=== PATIENT | female | born 1960 | race African-American/Black ===

== ENCOUNTER 2017-03-03 14:00 | Inpatient (IN) | payer OTHER ==
--- NOTE | 2017-03-03 14:34 | ER Document Report ---
ED Neuro Symptoms/Deficit - General Mode of Arrival: Medic Information source: Patient Notes: Patient is a 56 year old female with a history of stroke x2, hypertension, hyperlipidemia, and depression presents to the emergency department for stroke like symptoms onset 2 days ago. Patient states that she woke up Thursday morning and she noticed her speech was slurred and her tongue felt swollen. Patient states she did not immediately go to the doctor because she thought it was an infection due to a white coating on her tongue. Patient also complains of nausea. Patient denies any numbness, difficulty walking, trouble breathing, vomiting, headaches, weakness, blurry vision, runny nose, or sore throat. Patient states she last a stroke work up 4 years ago. TRAVEL OUTSIDE OF THE [place] IN LAST 30 DAYS: No - HPI Patient complains to provider of: Speech Impairment <FANTASMA YEE - Last Filed: 03/03/17 20:30> <KATJA GUERRERO - Last Filed: 03/03/17 23:22> - General Chief Complaint: S/S of Possible Stroke Stated Complaint: STROKE LIKE SYMPTOMS Time Seen by Provider: 03/03/17 14:17 - Related Data Allergies/Adverse Reactions: No Known Allergies Allergy (Unverified 03/03/17 19:03) Home Medications: Current Home Medications Bupropion HCl [Wellbutrin Sr] 150 mg PO Q12 03/03/17 [History] Clonidine HCl [Catapres 0.2 mg Tablet] 0.2 mg PO Q8 03/03/17 [History] Docusate Sodium [Colace] 200 mg PO QHS 03/03/17 [History] Ferrous Sulfate 324 mg PO DAILY 03/03/17 [History] Gabapentin [Neurontin] 400 mg PO Q12 03/03/17 [History] Hydralazine HCl [Apresoline 50 mg Tablet] 50 mg PO BID 03/03/17 [History] Isosorbide Mononitrate [Imdur 30 mg Tablet.er] 60 mg PO DAILY 03/03/17 [History] Metformin HCl [Glucophage] 1,000 mg PO BIDBS 03/03/17 [History] Metoprolol Tartrate [Lopressor 25 mg Tablet] 50 mg PO BID 03/03/17 [History] Pravastatin Sodium [Pravachol] 40 mg PO QHS 03/03/17 [History] Trazodone HCl [Desyrel 50 mg Tablet] 50 mg PO QHS 03/03/17 [History] Past Medical History - General Information source: Patient - Social History Smoking Status: Former Smoker Chew tobacco use (# tins/day): No Frequency of alcohol use: Occasional Drug Abuse: None Family History: Reviewed & Not Pertinent - Past Medical History Cardiac Medical History: Reports: Hx Hypertension <FANTASMA YEE - Last Filed: 03/03/17 20:30> Review of Systems - Review of Systems Constitutional: No symptoms reported EENT: No symptoms reported Cardiovascular: No symptoms reported Respiratory: No symptoms reported Gastrointestinal: See HPI, Nausea Genitourinary: No symptoms reported Female Genitourinary: No symptoms reported Skin: No symptoms reported Hematologic/Lymphatic: No symptoms reported Neurological/Psychological: See HPI, Speech impairment -: Yes All other systems reviewed and negative <FANTASMA YEE - Last Filed: 03/03/17 20:30> Physical Exam - Notes Notes: GENERAL: Alert, interacts well. No acute distress. HEAD: Normocephalic, atraumatic. EYES: Pupils equal, round, and reactive to light. Extraocular movements intact. ENT: Oral mucosa moist, tongue midline, oral thrush. NECK: Full range of motion. Supple. Trachea midline. LUNGS: Clear to auscultation bilaterally, no wheezes, rales, or rhonchi. No respiratory distress. HEART: 2/6 systolic murmur. No murmurs, gallops, or rubs. ABDOMEN: Soft, non-tender. Non-distended. Bowel sounds present in all 4 quadrants. EXTREMITIES: Moves all 4 extremities spontaneously. No edema, radial and dorsalis pedis pulses 2/4 bilaterally. No cyanosis. NEUROLOGICAL: Alert and oriented x3. Slurred speech. cranial nerves II through XII grossly intact. Biceps and patellar DTRs 2+ bilaterally. PSYCH: Normal affect, normal mood. SKIN: Warm, dry, normal turgor. No rashes or lesions noted. <FANTASMA YEE - Last Filed: 03/03/17 20:30> - Vital signs Vitals: Pulse Ox 97 03/03/17 14:20 <KATJA GUERRERO - Last Filed: 03/03/17 23:22> Course - Laboratory Result Diagrams: 03/03/17 14:40 03/03/17 14:40 <FANTASMA YEE - Last Filed: 03/03/17 20:30> - Re-evaluation Re-evalutation: 03/03/17 15:54 CBC shows mild anemia, no leukocytosis, 03/03/17 15:57 Coags unremarkable, CMP shows low sodium of 134.1 which is not significant, minimal renal failure with a BUN of 25 and creatinine 1.17, chest x-ray shows no acute process, CT scan of the head shows acute to subacute left cerebellar infarct consistent with a left vertebrobasilar infarct. No bleed. I discussed the patient with Dr. Kim the hospitalist who agrees to admit the patient to her service for acute ischemic CVA. Patient is not a candidate for TPA as this onset over 48 hours ago. - Vital Signs Vital signs: Temp Pulse Resp BP Pulse Ox 97 03/03/17 14:20 - Laboratory Result Diagrams: 03/03/17 14:40 03/03/17 14:40 Laboratory results interpreted by me: 03/03/17 03/03/17 14:40 14:40 Hgb 11.7 L Sodium 134.1 L BUN 25 H Est GFR ( Amer) 58 L Est GFR (Non-Af Amer) 48 L Glucose 206 H - EKG Interpretation by Me Additional EKG results interpreted by me: 03/03/17 15:58 EKG shows sinus rhythm at a rate of 65, normal axis, normal intervals, no ST segment elevations or depressions, nonspecific T-wave inversions in V5 and V6, also some lateral T-wave inversions in 1 and aVL per my interpretation. <KATJA GUERRERO - Last Filed: 03/03/17 23:22> ED [employer]/Exc Criteria - Date/Time patient last known well: Date/Time: 02/28/2017 - Date/Time patient arrived in ED: _: 03/03/2016 14:00 - Inclusion Criteria: 1: Patient presented to ED within 3 hours of acute ischemic stroke symptom onset ? -: No 2: Did baseline CT exclude intracranial hemorrhage and/or other risk factors? 3: Is the age of the patient 18 years of age or greater? -: Yes : If any of the above questions are answered "NO" then stop, patient is not a candidate for Alteplase, : If all of the above questions are answered "YES" then continue with Exclusion Criteria. - The patient is: -: Included and is eligible to receive Alteplase. *Initiate bed placement at higher level of care* --: No Reviewd risks & benefits of thrombolytic therapy: I have reviewed the risks and benefits of thrombolytic therapy with the patient and/or his/her family. -: Excluded and not eligible to receive Alteplase for the above exclusions. --: Yes -: Excluded and not eligible to receive Alteplase for other reasons (specify in comments): <JOSELITOFANTASMA IBANEZ - Last Filed: 03/03/17 20:30> ED NIH Stroke Scale - NIH Stroke Scale *: 1. NIH scale should be completed with appropriate accompanying assessment tools. *: 2. The NIH should reflect what the patient is capable of doing and should not be coached by the clinician. 1a. Level of Consciousness: 0=Alert;keenly responsive -: 1=Drowsy -: 2=Obtunded -: 3=Coma/unresponsive or reflex to noxious stimuli. 1a. Responses: 0 1b. Orientation Questions: a. What month is it? -: b. How old are you? -: 0=Answers both questions correctly. -: 1=Answers one question correctly or patient is intubated or has orotracheal trauma. -: 2=Answers neither question correctly. 1b. Responses: 0 1c. Response to commands: a. Open and close eyes? -: b. Customs Director and release hand? -: Credit is given despite weakness. Demonstration of task is permitted. Substitute command if hands cannot be used. -: 0=Performs both tasks correctly -: 1=Performs one task correctly -: 2=Performs neither task correctly 1c. Responses: 0 2. Gaze: Establish eye contact and instruct patient to "Follow my finger" -: 0=Normal -: 1=Partial gaze palsy. Gaze is abnormal in one or both eyes, but where forced deviation or total gaze paresis is not present. -: 2=Forced deviation or total gaze paresis. 2. Responses: 0 3. Visual Warren: Sees fingers in all four quadrants. -: 0=No visual loss. -: 1=Partial hemianopsia. -: 2=Complete hemianopsia. -: 3=Bilateral hemianopsia (including Cortical blindness) 3. Responses: 0 4. Facial Movement: Instruct patient to: -: a. Show me your teeth -: b. Raise your eyebrows -: c. Close your eyes -: d. Smile -: 0=Normal symmetrical movement -: 1=Minor paralysis (flattened nasolabial fold, asymmetry on smiling). -: 2=Partial paralysis (total or near total paralysis of lower face). -: 3=Complete paralysis of upper and lower face 4. Responses: 0 5. Motor functions (left arm): Alternate sides and extend each arm with palms down (90 degrees if sitting or 45 degrees for supine). -: 0=No drift;limb holds for full 10 seconds. -: 1=Drift; limb holds but drifts down before full 10 seconds, but does not hit bed. -: 2=Some effort against gravity; limb cannot get to or maintain position. -: 3=No effort against gravity; limb falls. -: 4=No movement. -: UN=Amputation, joint fusion, explain in comments. 5. Responses (left arm): 0 5. Motor Functions (right arm): Alternate sides and extend each arm with palms down (90 degrees if sitting or 45 degrees for supine). -: 0=No drift;limb holds for full 10 seconds. -: 1=Drift; limb holds but drifts down before full 10 seconds, but does not hit bed. -: 2=Some effort against gravity; limb cannot get to or maintain position. -: 3=No effort against gravity; limb falls. -: 4=No movement. -: UN=Amputation, joint fusion, explain in comments. 5. Responses (right arm): 0 6. Motor Functions (left leg): With patient lying supine, alternate sides and extend each leg (30 degrees always while supine). -: 0=No drift, leg holds position for full 5 seconds -: 1=Drift; leg falls before full 5 seconds but does not hit bed. -: 2=Some effort against gravity, leg falls to bed but some effort against gravity. -: 3=No effort against gravity, leg falls to bed immediately. -: 4=No movement. -: UN=Amputation, joint fusion; explain in comments. 6. Responses (left leg): 0 6. Motor Functions (right leg): With patient lying supine, alternate sides and extend each leg (30 degrees always while supine). -: 0=No drift, leg holds position for full 5 seconds -: 1=Drift; leg falls before full 5 seconds but does not hit bed. -: 2=Some effort against gravity, leg falls to bed but some effort against gravity. -: 3=No effort against gravity, leg falls to bed immediately. -: 4=No movement. -: UN=Amputation, joint fusion; explain in comments. 6. Responses (right leg): 0 7. Limb Ataxia: With eyes open instruct patient to: -: a. "Touch your finger to your nose". -: b. "Touch your heel to your armendariz" -: 0=Absent -: 1=Present in one limb. -: 2=Present in two limbs. -: UN=Amputation or joint fusion; explain in comments. 7. Responses: 0 8. Sensory: Test sensation using pinprick or noxious stimuli. Test as many body parts as possible. -: 0=Normal;no sensory loss -: 1=Mile to moderate sensory loss (patient feels pin prick but is less sharp on affected side). -: 2=Severe or total sensory loss. 8. Responses: 0 9. Best Language: Instruct patient to: -: a. "Describe what you see in this picture." -: b. "Name the items in this picture." -: c. "Read these sentences." -: 0=No aphasia, normal -: 1=Mild to moderate aphasia. -: 2=Severe aphasia -: 3=Mute, global aphasia, no usable speech or auditory comprehension. 9. Responses: 0 10. Articulation, Dysarthia: Instruct patient to: -: "Read these words" or "Repeat these words" -: 0=Normal -: 1=Mild to moderate; patient may slur some words but can be understood without difficulty. -: 2=Severe; patients speech so slurred as to be unintelligible in the absence of dysphasia. -: UN=Intubated or other physical barrier, explain in comments. 10. Responses: 1 11. Extinction or inattention: 0=No abnormality -: 1= Visual, tactile, auditory, spatial, or personal inattention or extinction to bilateral simulation in one or the sensory modalities. -: 2=Profound katherine-inattention or katherine-inattention to more than one modality; does not recognize own hand. 11. Responses: 0 Total Score: 1 <FANTASMA YEE - Last Filed: 03/03/17 20:30> Discharge <FANTASMA YEE - Last Filed: 03/03/17 20:30> - Discharge Admitting Provider: Hospitalist - [facility] Admitted: [facility] Scribe Attestation: 03/03/17 23:22 I personally performed the services described in the documentation, reviewed and edited the documentation which was dictated to the scribe in my presence, and it accurately records my words and actions. <KATJA GUERRERO - Last Filed: 03/03/17 23:22> - Discharge Clinical Impression: CVA (cerebral vascular accident) Qualifiers: CVA mechanism: unspecified Qualified Code(s): I63.9 - Cerebral infarction, unspecified Condition: Fair Disposition: ADMITTED INPATIENT Scribe Documentation - Scribe Written by Scribe:: Tapan Braun, 03/03/2016 15:12 acting as scribe for :: Yulisa <FANTASMA YEE - Last Filed: 03/03/17 20:30>
[2017-03-03 14:48] LABS: ABSOLUTE LYMPHOCYTES (AUTO) 1.4 10^3/uL (0.5-4.7); ABSOLUTE MONOCYTES (AUTO) 0.5 10^3/uL (0.1-1.4); ABSOLUTE NEUT (AUTO) 3.5 10^3/uL (1.7-8.2); BASOPHILS % (AUTO) 0.6 % (0-2); EOSINOPHILS % (AUTO) 0.5 % (0-6); HEMATOCRIT 36.5 % (36.0-47.0); HEMOGLOBIN 11.7 g/dL (12.0-15.5); LYMPHOCYTES % (AUTO) 25.1 % (13-45); MEAN CORPUSCULAR HEMOGLOBIN 27.5 pg (27.0-33.4); MEAN CORPUSCULAR HGB CONC 32.1 g/dL (32.0-36.0); MEAN CORPUSCULAR VOLUME 86 fl (80-97); MONOCYTES % (AUTO) 8.6 % (3-13); PLATELET COUNT 214 10^3/uL (150-450); RED BLOOD COUNT 4.26 10^6/uL (3.72-5.28); RED CELL DISTRIBUTION WIDTH 13.7 % (11.5-14.0); SEGMENTED NEUTROPHILS % (AUTO) 65.2 % (42-78); TOTAL CELLS COUNTED % (AUTO) 100 %; WHITE BLOOD COUNT 5.4 10^3/uL (4.0-10.5)
[2017-03-03 14:52] LABS: PROTHROMBIN TIME 12.8 SEC (11.4-15.4)
[2017-03-03 14:53] LABS: PARTIAL THROMBOPLASTIN TIME 29.9 SEC (23.5-35.8)
[2017-03-03 15:07] LABS: ALANINE AMINOTRANSFERASE 24 U/L (9-52); ALBUMIN 4.2 g/dL (3.5-5.0); ALKALINE PHOSPHATASE 66 U/L (38-126); ANION GAP 8 (5-19); ASPARTATE AMINO TRANSFERASE 14 U/L (14-36); BILIRUBIN,DIRECT 0.2 mg/dL (0.0-0.4); BILIRUBIN,TOTAL 0.4 mg/dL (0.2-1.3); BLOOD UREA NITROGEN 25 mg/dL (7-20); CALCIUM 9.8 mg/dL (8.4-10.2); CARBON DIOXIDE 27 mmol/L (22-30); CHLORIDE 99 mmol/L (98-107); CREATINE KINASE 57 U/L (30-135); GLUCOSE 206 mg/dL (75-110); POTASSIUM 4.8 mmol/L (3.6-5.0); SODIUM 134.1 mmol/L (137-145); TOTAL PROTEIN 6.8 g/dL (6.3-8.2)
[2017-03-03 15:19] LABS: CREATINE KINASE MB 0.28 ng/mL (<4.55)
[2017-03-03 15:20] LABS: TROPONIN I < 0.012 ng/mL
--- NOTE | 2017-03-03 15:37 | RADIOLOGY REPORT (SQ) ---
EXAM DESCRIPTION: CHEST SINGLE VIEW COMPLETED DATE/TIME: 03/03/2017 3:26 pm REASON FOR STUDY: slurred speech, stroke like symptoms COMPARISON: None. EXAM PARAMETERS: NUMBER OF VIEWS: One view. TECHNIQUE: Single frontal radiographic view of the chest acquired. RADIATION DOSE: NA LIMITATIONS: None. FINDINGS: LUNGS AND PLEURA: No opacities, masses or pneumothorax. No pleural effusion. MEDIASTINUM AND HILAR STRUCTURES: No masses. Contour normal. HEART AND VASCULAR STRUCTURES: Mild cardiomegaly. Normal vasculature. BONES: No acute findings. HARDWARE: None in the chest. OTHER: No other significant finding. IMPRESSION: NO ACUTE RADIOGRAPHIC FINDING IN THE CHEST. TECHNICAL DOCUMENTATION: JOB ID: [id number] [employer]- All Rights Reserved
--- NOTE | 2017-03-03 15:37 | RADIOLOGY REPORT (SQ) ---
EXAM DESCRIPTION: CT HEAD WITHOUT COMPLETED DATE/TIME: 03/03/2017 3:22 pm REASON FOR STUDY: slurred speech, stroke like symptoms COMPARISON: None. TECHNIQUE: Axial images acquired through the brain without intravenous contrast. Images reviewed wi th bone, brain and subdural windows. Images stored on PACS. All CT scanners at this facility use dose modulation, iterative reconstruction, and/or weight based d osing when appropriate to reduce radiation dose to as low as reasonably achievable (ALARA). [facility]: Dose Right [facility]: CareDose [facility]: Dose Right [facility]: Teradose 4D [facility]: Smart test company RADIATION DOSE: CT Rad equipment meets quality standard of care and radiation dose reduction techniq ues were employed. CTDIvol: 64.6 mGy. DLP: 1163 mGy-cm.mGy. LIMITATIONS: None. FINDINGS: VENTRICLES: Prominent. CEREBRUM: No masses. No hemorrhage. No midline shift. Areas of low density in the white matter mos t likely due to chronic micro-vascular ischemic change. No evidence for acute infarction. CEREBELLUM: No masses. No hemorrhage. Area of decreased attenuation in the left cerebellar hemisphe re. EXTRAAXIAL SPACES: Age-related involutional change. No fluid collections. No masses. ORBITS AND GLOBE: No intra- or extraconal masses. Normal contour of globe without masses. CALVARIUM: No fracture. PARANASAL SINUSES: No fluid or mucosal thickening. SOFT TISSUES: No mass or hematoma. OTHER: No other significant finding. IMPRESSION: CHRONIC CHANGES OF ATROPHY AND MICROVASCULAR ISCHEMIA. DECREASED ATTENUATION IN THE LEF T CEREBELLAR HEMISPHERE CONSISTENT WITH INFARCT, POSSIBLY RECENT. IF CLINICALLY INDICATED, FOLLOW-UP WITH MRI MAY BE CONSIDERED. EVIDENCE OF ACUTE STROKE: YES. LEFT VERTEBROBASILAR COMMENT: Pertinent findings on the imaging study reported as a CRITICAL RESULT to ASHLEY THOMPSON MD at 15:31 on 03/03/2017. Category of Critical Result: Acute infarct. TECHNICAL DOCUMENTATION: JOB ID: [id number] Quality ID # [id number]: Final reports with documentation of one or more dose reduction techniques (e.g., Au tomated exposure control, adjustment of the mA and/or kV according to patient size, use of iterative reconstruction technique) 2010 [employer]- All Rights Reserved
[2017-03-03] MEDS ORDERED: DOCUSATE SODIUM 100 MG CAPSULE PO PRN (16:54)
[2017-03-03] MEDS ORDERED: ACETAMINOPHEN 325 MG TABLET PO PRN (16:54)
[2017-03-03] MEDS ORDERED: NORMAL SALINE 1000 ML 1,000 ML IV PRN (16:54)
--- NOTE | 2017-03-03 18:14 | PDOC H&P ---
History of Present Illness Admission Date/PCP: 03/03/17 16:13 Patient complains of: Change in Street since Thursday History of Present Illness: GENESIS GOMEZ is a 56 year old female with a history of hypertension diabetes and strokes presenting with change in speech since Thursday. Patient states she went to bed and was normal on Thursday. She states when she woke up her speech was different. Patient denied any other symptoms. Patient states she went to [facility] [place] [facility] where they did not find anything wrong. Did ask her to follow-up at [place] just in case they found something more. Patient she had 2 strokes in the past 1 out of her bed reading and one that affected her left side. Patient states she is recovering from both. Patient states however since found a stroke on the left side she will have intermittent pain and was started on gabapentin. CT scan was done and patient was noted to have an acute infarct. Hospitalist was called to admit patient for stroke workup. Past Medical History Cardiac Medical History: Reports: Hypertension Endocrine Medical History: Reports: Diabetes Mellitus Type 2 Social History Smoking Status: Former Smoker Frequency of Alcohol Use: None - Advance Directive Resuscitation Status: Full Code Family History Family History: Hypertension Parental Family History Reviewed: No Children Family History Reviewed: No Sibling(s) Family History Reviewed.: No Medication/Allergy Home Medications: Bupropion HCl [Wellbutrin Sr] 150 mg PO Q12 03/03/17 Clonidine HCl [Catapres 0.2 mg Tablet] 0.2 mg PO Q8 03/03/17 Docusate Sodium [Colace] 200 mg PO QHS 03/03/17 Ferrous Sulfate 324 mg PO DAILY 03/03/17 Gabapentin [Neurontin] 400 mg PO Q12 03/03/17 Hydralazine HCl [Apresoline 25 mg Tablet] 25 mg PO 03/03/17 Hydralazine HCl [Apresoline 50 mg Tablet] 50 mg PO 03/03/17 Isosorbide Mononitrate [Imdur 30 mg Tablet.er] 03/03/17 Metformin HCl [Glucophage] 1,000 mg PO BIDBS 03/03/17 Metoprolol Tartrate [Lopressor 25 mg Tablet] 03/03/17 Pravastatin Sodium [Pravachol] 40 mg PO QHS 03/03/17 Trazodone HCl [Desyrel 50 mg Tablet] 50 mg PO QHS 03/03/17 Review of Systems Constitutional: ABSENT: chills, fever(s), headache(s), weight gain, weight loss Eyes: ABSENT: visual disturbances Ears: ABSENT: hearing changes Cardiovascular: ABSENT: chest pain, dyspnea on exertion, edema, orthropnea, palpitations Respiratory: ABSENT: cough, hemoptysis Gastrointestinal: ABSENT: abdominal pain, constipation, diarrhea, hematemesis, hematochezia, nausea, vomiting Genitourinary: ABSENT: dysuria, hematuria Musculoskeletal: ABSENT: joint swelling Integumentary: ABSENT: rash, wounds Neurological: PRESENT: abnormal speech. ABSENT: abnormal gait, confusion, dizziness, focal weakness, syncope Psychiatric: ABSENT: anxiety, depression, homidical ideation, suicidal ideation Endocrine: ABSENT: cold intolerance, heat intolerance, polydipsia, polyuria Hematologic/Lymphatic: ABSENT: easy bleeding, easy bruising Physical Exam Vital Signs: Temp Pulse Resp BP Pulse Ox 97 03/03/17 14:20 Intake & Output 03/02/17 03/03/17 03/04/17 06:59 06:59 06:59 Weight 91.172 kg General appearance: PRESENT: no acute distress, well-developed, well-nourished Head exam: PRESENT: atraumatic, normocephalic Eye exam: PRESENT: conjunctiva pink, EOMI, PERRLA. ABSENT: scleral icterus Ear exam: PRESENT: normal external ear exam Mouth exam: PRESENT: moist, tongue midline Neck exam: ABSENT: carotid bruit, JVD, lymphadenopathy, thyromegaly Respiratory exam: PRESENT: clear to auscultation linda. ABSENT: rales, rhonchi, wheezes Cardiovascular exam: PRESENT: RRR. ABSENT: diastolic murmur, rubs, systolic murmur Pulses: PRESENT: normal dorsalis pedis pul Vascular exam: PRESENT: normal capillary refill GI/Abdominal exam: PRESENT: normal bowel sounds, soft. ABSENT: distended, guarding, mass, organolmegaly, rebound, tenderness Rectal exam: PRESENT: deferred Extremities exam: PRESENT: full ROM. ABSENT: calf tenderness, clubbing, pedal edema Neurological exam: PRESENT: alert, awake, oriented to person, oriented to place , oriented to time, oriented to situation, CN II-XII grossly intact, other - Slurred speech. ABSENT: motor sensory deficit Psychiatric exam: PRESENT: appropriate affect, normal mood. ABSENT: homicidal ideation, suicidal ideation Skin exam: PRESENT: dry, intact, warm. ABSENT: cyanosis, rash Results Laboratory Results: 03/03/17 03/03/17 03/03/17 14:40 14:40 14:40 WBC 5.4 RBC 4.26 Hgb 11.7 L Hct 36.5 MCV 86 MCH 27.5 MCHC 32.1 RDW 13.7 Plt Count 214 Sodium 134.1 L Potassium 4.8 Chloride 99 Carbon Dioxide 27 Anion Gap 8 BUN 25 H Est GFR ( Amer) 58 L Est GFR (Non-Af Amer) 48 L Glucose 206 H AST 14 ALT 24 Alkaline Phosphatase 66 Creatine Kinase 57 CK-MB (CK-2) 0.28 Troponin I < 0.012 Total Protein 6.8 Albumin 4.2 Impressions: Chest X-Ray 03/03/17 14:38 IMPRESSION: NO ACUTE RADIOGRAPHIC FINDING IN THE CHEST. Head CT 03/03/17 14:38 IMPRESSION: CHRONIC CHANGES OF ATROPHY AND MICROVASCULAR ISCHEMIA. DECREASED ATTENUATION IN THE LEFT CEREBELLAR HEMISPHERE CONSISTENT WITH INFARCT, POSSIBLY RECENT. IF CLINICALLY INDICATED, FOLLOW-UP WITH MRI MAY BE CONSIDERED. EVIDENCE OF ACUTE STROKE: YES. LEFT VERTEBROBASILAR Status: Imported from PACS Assessment & Plan - Diagnosis (1) CVA (cerebral vascular accident) Qualifiers: CVA mechanism: unspecified Qualified Code(s): I63.9 - Cerebral infarction, unspecified Plan: Patient with left vertebrobasilar stroke. Patient speech is affected (slurred) Patient with no other obvious deficit. She with 2 previous strokes. Speech therapy and Occupational Therapy and physical therapy consulted. Patient started on high-dose aspirin and Plavix and high-dose statin. Will allow for permissive hypertension. Cardiac echo carotid Doppler and MRI brain ordered. Lipid panel and hemoglobin A1c for the morning. (2) Hypertension Qualifiers: Hypertension type: essential hypertension Qualified Code(s): I10 - Essential (primary) hypertension Is this a current diagnosis for this admission?: Yes Plan: Patient on 4 antihypertensives will allow for permissive hypertension. Will only treat for systolic blood pressures greater than 180. (3) Diabetes Is this a current diagnosis for this admission?: Yes Plan: Will check hemoglobin A1c in the morning and start patient on sliding scale insulin. (4) HLD (hyperlipidemia) Is this a current diagnosis for this admission?: Yes Plan: Check lipid panel in the morning start high-dose statin. (5) Hyponatremia Is this a current diagnosis for this admission?: Yes Plan: She on hydrochlorothiazide which could result in her hyponatremia. Will start patient on normal saline at 75 cc an hour and repeat BNP in the a.m. (6) Dehydration Is this a current diagnosis for this admission?: Yes Plan: She might have some mild dehydration with prerenal azotemia as her BUN is elevated. Will gently hydrate and hold patient hydrochlorothiazide. Will repeat BMP in a.m. - Time Time Spent: 30 to 50 Minutes Anticipated discharge: Home with Homehealth Within: within 48 hours - Inpatient Certification Medical Necessity: Need for Neurological Checks
--- NOTE | 2017-03-03 18:35 | EKG REPORT ---
SEVERITY:- ABNORMAL ECG - SINUS RHYTHM PROBABLE LEFT ATRIAL ABNORMALITY PROBABLE LEFT VENTRICULAR HYPERTROPHY : Confirmed by: Michael Silvestre MD 03-Mar-2017 18:34:54
[2017-03-03] MEDS ORDERED: DEXTROSE 50%-WATER 25 GM/50 ML DISP.SYRIN IV PRN ×2 (20:42)
[2017-03-03] MEDS ORDERED: DEXTROSE 40% GEL 15 GM TUBE PO PRN ×2 (20:42)
[2017-03-03] MEDS ORDERED: GLUCAGON,HUMAN RECOMB 1 MG INJ IM PRN (20:42)
--- NOTE | 2017-03-03 21:23 | RADIOLOGY REPORT (SQ) ---
EXAM DESCRIPTION: MRI HEAD WITHOUT COMPLETED DATE/TIME: 03/03/2017 9:10 pm REASON FOR STUDY: stroke COMPARISON: CT dated 03/03/2017. TECHNIQUE: Multiplanar imaging includes non-contrasted T1, T2, FLAIR, and diffusion with ADC map seq uences. Images stored on PACS. LIMITATIONS: None. FINDINGS: ANATOMY: No anomalies. Normal vascular flow voids. Pituitary fossa normal. CSF SPACES: Atrophy induced prominence of ventricles and CSF spaces. CEREBRUM: High signal intensity lesions scattered throughout the white matter on FLAIR imaging with d istribution suggesting micro-vascular ischemic changes. No evidence of hemorrhage, mass, or extraaxi al fluid collection. POSTERIOR FOSSA: No signal alteration. No hemorrhage. Old infarct in the left cerebellar hemisphere. No edema, masses or mass effect. Internal auditory canals, cerebello-pontine angles, mastoids norm al. DIFFUSION IMAGING: Focal area of restricted diffusion in the left thalamus. ORBITS: No masses. Globes normal. PARANASAL SINUSES: No fluid levels. Mucosa normal. OTHER: No other significant finding. IMPRESSION: 1. SMALL FOCAL AREA OF RESTRICTED DIFFUSION IN THE LEFT THALAMUS CONSISTENT WITH ACUTE INFARCT. 2. ATROPHY AND CHRONIC MICRO-VASCULAR ISCHEMIC CHANGES. OLD INFARCT IN THE LEFT CEREBELLAR HEMISPHER E. EVIDENCE OF ACUTE STROKE: NO. TECHNICAL DOCUMENTATION: JOB ID: [id number] [employer]- All Rights Reserved
[2017-03-03] MEDS ORDERED: (PENDING PHARMACY ID) (Gabapentin [Neurontin] 400 MG) PO SCH (22:00)
[2017-03-03] MEDS ORDERED: BUPROPION HCL 150 MG PO SCH (22:00)
[2017-03-03] MEDS ORDERED: CLONIDINE HCL 0.1 MG TABLET PO PRN (22:59)
[2017-03-03] MEDS: DOCUSATE SODIUM 100 MG CAPSULE PO SCH (23:20)
[2017-03-03] MEDS: BUPROPION HCL 100 MG TABLET PO SCH (23:20)
[2017-03-03] MEDS: ATORVASTATIN CALCIUM 80 MG TABLET PO SCH (23:21)
[2017-03-03] MEDS: TRAZODONE HCL 50 MG TABLET PO SCH (23:22)
[2017-03-03] MEDS: GABAPENTIN 400 MG CAPSULE PO SCH (23:22)
[2017-03-03] MEDS: CLONIDINE HCL 0.1 MG TABLET PO SCH (23:23)
[2017-03-03] MEDS: INSULIN LISPRO 100 UNIT/ML 3 ML VIAL SUBCUT PRN (23:24)
[2017-03-04] MEDS: LANSOPRAZOLE 30 MG TAB.RAP.DR PO SCH (06:34)
[2017-03-04] MEDS: BUPROPION HCL 100 MG TABLET PO SCH ×3 (06:35→22:54)
[2017-03-04 07:19] LABS: ANION GAP 9 (5-19); BLOOD UREA NITROGEN 19 mg/dL (7-20); CALCIUM 9.3 mg/dL (8.4-10.2); CARBON DIOXIDE 26 mmol/L (22-30); CHLORIDE 103 mmol/L (98-107); CHOLESTEROL 208.02 mg/dL (0-200); GLUCOSE 167 mg/dL (75-110); POTASSIUM 4.4 mmol/L (3.6-5.0); SODIUM 138.3 mmol/L (137-145); TRIGLYCERIDES 135 mg/dL (<150)
[2017-03-04 07:30] LABS: DIRECT LDL 120 mg/dL (<100)
[2017-03-04] MEDS: ASPIRIN 325 MG TABLET, ENT COATED PO SCH (09:57)
[2017-03-04] MEDS: GABAPENTIN 400 MG CAPSULE PO SCH ×2 (09:57→21:13)
[2017-03-04] MEDS: CLOPIDOGREL BISULFATE 75 MG TABLET PO SCH (09:57)
[2017-03-04] MEDS ORDERED: (PENDING PHARMACY ID) (Ferrous Sulfate [Ferrous Sulfate] 324 MG) PO SCH (10:00)
[2017-03-04] MEDS ORDERED: FERROUS SULFATE 325 MG TABLET PO SCH (10:00)
--- NOTE | 2017-03-04 12:04 | RADIOLOGY REPORT (SQ) ---
EXAM DESCRIPTION: CAROTID DOPPLER COMPLETED DATE/TIME: 03/04/2017 11:42 am REASON FOR STUDY: stroke COMPARISON: MRI brain 03/03/2017 CT brain 03/03/2017 TECHNIQUE: Grayscale ultrasound, Doppler velocity and spectra, and color Doppler images acquired of the extra-cranial carotid and vertebral arteries. Images stored on PACS. LIMITATIONS: None. FINDINGS: RIGHT CAROTID CCA Velocities: Within normal limits. ICA Velocities Peak systolic 0.72 m/s. End diastolic 0.21 m/s. Proximal ICA/CCA peak systolic ratio 1.8. Mixed calcific and noncalcific plaque is present shadowing the origin of the right proximal internal carotid artery. Just distal to the shadowing plaque, velocities suggest against any flow significant stenosis LEFT CAROTID CCA Velocities: Within normal limits. ICA Velocities Peak systolic 0.74 m/s. End diastolic 0.26 m/s. Proximal ICA/CCA peak systolic ratio 1.9. Spectra normal. No significant plaque. VERTEBRAL ARTERIES: Antegrade flow. Normal waveforms. SUBCLAVIAN ARTERIES: Not evaluated OTHER: No other significant finding. IMPRESSION: NO HEMODYNAMICALLY SIGNIFICANT STENOSIS. COMMENT: Quality ID #[id number]: Velocity criteria are extrapolated from the diameter data as defined by t he Society of Radiologists in Ultrasound Consensus Conference. Radiology 2003: 229; 340-346. TECHNICAL DOCUMENTATION: JOB ID: [id number] [employer]- All Rights Reserved
[2017-03-04] MEDS: CLONIDINE HCL 0.1 MG TABLET PO SCH (13:30)
--- NOTE | 2017-03-04 18:04 | RADIOLOGY REPORT (SQ) ---
EXAM DESCRIPTION: MRA HEAD WITHOUT COMPLETED DATE/TIME: 03/04/2017 5:47 pm REASON FOR STUDY: stroke COMPARISON: None. TECHNIQUE: Axial 3-D cdyh-dl-fkyivl acquisition imaging performed through the brain in the area of t [place]. Images reformatted using 3-D MIPS. LIMITATIONS: None. FINDINGS: SOURCE IMAGES: No unexpected findings on source images. No large masses. 3-D MIP: No aneurysm. No occlusions. Suspect focal stenoses of the distal right and left vertebral arteries at the junction with the basilar artery. Absent a 1 segment of the right anterior cerebral artery with patent anterior communicating artery. Limited visualization of the distal left anterior cerebral artery, possibly stenotic. OTHER: No other significant finding. IMPRESSION: NO OCCLUSIONS. PROBABLE FOCAL STENOSES OF THE DISTAL RIGHT AND LEFT VERTEBRAL ARTERIES AT THE JUNCTION WITH THE BASILAR ARTERY. LIMITED VISUALIZATION OF THE DISTAL LEFT ANTERIOR CEREBRAL ARTERY, POSSIBLY STENOTIC. ABSENT A 1 SEGMENT OF THE RIGHT ANTERIOR CEREBRAL ARTERY WITH PATENT ANTE RIOR COMMUNICATING ARTERY. TECHNICAL DOCUMENTATION: JOB ID: [id number] [employer]- All Rights Reserved
[2017-03-04] MEDS: INSULIN LISPRO 100 UNIT/ML 3 ML VIAL SUBCUT PRN (18:52)
--- NOTE | 2017-03-04 19:22 | XCELERA REPORT ---
[address] [address] Transthoracic Echocardiogram Report Name: GENESIS GOMEZ Age: 56 yrs Gender: Female : 1960 Patient Status: Inpatient Patient Location: [address] Study Date: 03/04/2017 10:08 AM Height: 66 in Weight: 200 lb BSA: 2.0 m2 Procedure: A complete two-dimensional transthoracic echocardiogram was performed (2D, M-mode, spectral and color flow Doppler). The study was technically adequate with some images being suboptimal in quality. Reason For Study: stroke Ordering Physician: TORRES DOTY Performed By: Radha Fonseca Interpretation Summary The left ventricular ejection fraction is normal. There is mild concentric left ventricular hypertrophy. The left ventricle is grossly normal size. Doppler measurements suggest pseudonormalized left ventricular relaxation, which is associated with grade II/IV or mild to moderate diastolic dysfunction Wall motion cannot be accurately commented on, but no definite regional wall motion abnormalities noted. The right ventricular systolic function is normal. The left atrium is mildly dilated. The right atrium is normal in size There is a trace to mild amount of mitral regurgitation There is no mitral valve stenosis. There is no aortic valve stenosis No aortic regurgitation is present. There is a trace amount of tricuspid regurgitation Right ventricular systolic pressure is at the upper limits of normal The aortic root is not well visualized. The inferior vena cava appeared normal and decreased > 50% with respiration (RAP 5-10 mmHg) There is no pericardial effusion. No definite cardiac source of CVA/TIA noted on this particular trans- thoracic study. Consider DB if clinically indicated. May consider mobile cardiac telemetry monitoring (MCT) for ruling out transient AFIB. MMode/2D Measurements & Calculations RVDd: 3.1 cm LVIDd: 4.5 cm FS: 35.6 % Ao root diam: 2.5 cm IVSd: 1.2 cm LVIDs: 2.9 cm EDV(Teich): 91.7 ml LVPWd: 1.2 cm ESV(Teich): 31.8 ml Ao root area: 5.1 cm2 EF(Teich): 65.3 % Doppler Measurements & Calculations MV E max jewel: MV dec slope: Ao V2 max: LV V1 max P.4 cm/sec 158.6 cm/sec 5.5 mmHg MV A max jewel: 462.2 cm/sec2 Ao max PG: LV V1 max: 107.3 cm/sec MV dec time: 10.1 mmHg 117.2 cm/sec MV E/A: 0.94 0.22 sec PA V2 max: PI end-d jewel: TR max jewel: 78.8 cm/sec 140.1 cm/sec 248.0 cm/sec PA max P.5 mmHg TR max P.9 mmHg Left Ventricle The left ventricle is grossly normal size. There is mild concentric left ventricular hypertrophy. The left ventricular ejection fraction is normal. Doppler measurements suggest pseudonormalized left ventricular relaxation, which is associated with grade II/IV or mild to moderate diastolic dysfunction. Wall motion cannot be accurately commented on, but no definite regional wall motion abnormalities noted. Right Ventricle The right ventricle is normal in size, thickness and function. There is normal right ventricular wall thickness. The right ventricular systolic function is normal. Atria The right atrium is normal in size. The left atrium is mildly dilated. Interarterial septum not well visualized and not well dopplered. Cannot comment on ASD/PFO presence. Mitral Valve The mitral valve is grossly normal. There is no mitral valve stenosis. There is a trace to mild amount of mitral regurgitation. Aortic Valve The aortic valve is grossly normal. There is no aortic valve stenosis. No aortic regurgitation is present. Tricuspid Valve The tricuspid valve is not well visualized, but is grossly normal. There is no tricuspid stenosis. There is a trace amount of tricuspid regurgitation. Right ventricular systolic pressure is at the upper limits of normal. Pulmonic Valve The pulmonic valve is not well visualized. Great Vessels The aortic root is not well visualized. The inferior vena cava appeared normal and decreased > 50% with respiration (RAP 5-10 mmHg). Effusions There is no pericardial effusion. Incidental Findings No definite cardiac source of CVA/TIA noted on this particular trans- thoracic study. Consider DB if clinically indicated. May consider mobile cardiac telemetry monitoring (MCT) for ruling out transient AFIB. : TORRES DOTY > Deja Ramírez
[2017-03-04] MEDS: ATORVASTATIN CALCIUM 80 MG TABLET PO SCH (21:11)
[2017-03-04] MEDS: DOCUSATE SODIUM 100 MG CAPSULE PO SCH (21:12)
[2017-03-04] MEDS: METOPROLOL TARTRATE 25 MG TABLET PO SCH (21:12)
[2017-03-04] MEDS: TRAZODONE HCL 50 MG TABLET PO SCH (21:13)
[2017-03-04] MEDS: CLONIDINE HCL 0.2 MG TABLET PO SCH (21:14)
[2017-03-04] MEDS ORDERED: HYDRALAZINE HCL 50 MG TABLET PO SCH ×2 (22:00)
--- NOTE | 2017-03-04 22:51 | PDOC PROGRESS REPORT ---
Subjective Progress Note for:: 03/04/17 Subjective:: Patient with acute stroke. History of 3 or 4 previous strokes. Patient with affected speech. She is doing well today. Reason For Visit: STROKE Physical Exam Vital Signs: Temp Pulse Resp BP Pulse Ox 98.2 F 62 20 194/105 H 62 L 03/04/17 21:45 03/04/17 21:45 03/04/17 21:45 03/04/17 21:45 03/04/17 21:45 Intake & Output 03/03/17 03/04/17 03/05/17 06:59 06:59 06:59 Weight 91.172 kg 98.6 kg General appearance: PRESENT: no acute distress, obese, well-developed, well- nourished Head exam: PRESENT: normocephalic Eye exam: PRESENT: EOMI. ABSENT: scleral icterus Mouth exam: PRESENT: moist Neck exam: ABSENT: carotid bruit, JVD, lymphadenopathy, thyromegaly Respiratory exam: PRESENT: clear to auscultation linda. ABSENT: rales, rhonchi, wheezes Cardiovascular exam: PRESENT: RRR. ABSENT: diastolic murmur, rubs, systolic murmur Pulses: PRESENT: normal dorsalis pedis pul Vascular exam: PRESENT: normal capillary refill GI/Abdominal exam: PRESENT: normal bowel sounds, soft. ABSENT: distended, guarding, mass, organolmegaly, rebound, tenderness Rectal exam: PRESENT: deferred Extremities exam: PRESENT: full ROM. ABSENT: calf tenderness, clubbing, pedal edema Neurological exam: PRESENT: alert, awake, oriented to person, oriented to place , oriented to time, oriented to situation, CN II-XII grossly intact, other - slight right lip droop slurred speech. ABSENT: motor sensory deficit Psychiatric exam: PRESENT: appropriate affect, normal mood. ABSENT: homicidal ideation, suicidal ideation Skin exam: PRESENT: dry, intact, warm. ABSENT: cyanosis, rash Results Laboratory Results: 03/04/17 06:40 03/04/17 06:40 Sodium 138.3 Potassium 4.4 Chloride 103 Carbon Dioxide 26 Anion Gap 9 BUN 19 Creatinine 0.99 Est GFR ( Amer) > 60 Est GFR (Non-Af Amer) 58 L Glucose 167 H Calcium 9.3 Triglycerides 135 Cholesterol 208.02 H LDL Cholesterol Direct 120 H VLDL Cholesterol 27.0 HDL Cholesterol 47 Impressions: Head MRI 03/03/17 00:00 IMPRESSION: 1. SMALL FOCAL AREA OF RESTRICTED DIFFUSION IN THE LEFT THALAMUS CONSISTENT WITH ACUTE INFARCT. 2. ATROPHY AND CHRONIC MICRO-VASCULAR ISCHEMIC CHANGES. OLD INFARCT IN THE LEFT CEREBELLAR HEMISPHERE. EVIDENCE OF ACUTE STROKE: NO. Chest X-Ray 03/03/17 14:38 IMPRESSION: NO ACUTE RADIOGRAPHIC FINDING IN THE CHEST. Head CT 03/03/17 14:38 IMPRESSION: CHRONIC CHANGES OF ATROPHY AND MICROVASCULAR ISCHEMIA. DECREASED ATTENUATION IN THE LEFT CEREBELLAR HEMISPHERE CONSISTENT WITH INFARCT, POSSIBLY RECENT. IF CLINICALLY INDICATED, FOLLOW-UP WITH MRI MAY BE CONSIDERED. EVIDENCE OF ACUTE STROKE: YES. LEFT VERTEBROBASILAR Brain MRI with MRA 03/04/17 00:00 IMPRESSION: NO OCCLUSIONS. PROBABLE FOCAL STENOSES OF THE DISTAL RIGHT AND LEFT VERTEBRAL ARTERIES AT THE JUNCTION WITH THE BASILAR ARTERY. LIMITED VISUALIZATION OF THE DISTAL LEFT ANTERIOR CEREBRAL ARTERY, POSSIBLY STENOTIC. ABSENT A 1 SEGMENT OF THE RIGHT ANTERIOR CEREBRAL ARTERY WITH PATENT ANTERIOR COMMUNICATING ARTERY. Carotid Doppler Study 03/04/17 00:00 IMPRESSION: NO HEMODYNAMICALLY SIGNIFICANT STENOSIS. Assessment & Plan - Diagnosis (1) CVA (cerebral vascular accident) Qualifiers: CVA mechanism: unspecified Qualified Code(s): I63.9 - Cerebral infarction, unspecified Plan: Patient with left vertebrobasilar stroke. Discussed case with neurology at [facility]. Recommend plavix indefinitely because of recurrent stroke. MRA which demonstrates stenosis. Echo and carotids okay. Continue statin and plavix. Speech therapy following. Patient need for aggressive diabetic control. Patient will need referral from the [place] for cardi[place] follow up for event monitor to evaluate for possible afib leading to recurrent strokes and referral to neurology since she has had multiple stroke. (2) Hypertension Qualifiers: Hypertension type: essential hypertension Qualified Code(s): I10 - Essential (primary) hypertension Is this a current diagnosis for this admission?: Yes Plan: Patient becoming hypertensive. Patient restarted on clonidine overnight. Will place back on her home dose of clonidine to avoid rebound hypertension. Will start her metoprolol and hydralazine. (3) Diabetes Is this a current diagnosis for this admission?: Yes Plan: A1c 8.2. Patient will require tight control. Patient currently on SSI. Patient may need to be on insulin in addition to her metformin. Will discuss with patient. (4) HLD (hyperlipidemia) Is this a current diagnosis for this admission?: Yes Plan: Continue high dose statin. (5) Hyponatremia Is this a current diagnosis for this admission?: Yes Plan: Resolved. Will saline lock. (6) Dehydration Is this a current diagnosis for this admission?: Yes Plan: Resolved with IV fluids. Patient now saline locked. - Time Time Spent with patient: 15-24 minutes Anticipated discharge: Home with Homehealth Within: within 24 hours - Inpatient Certification Medical Necessity: Need For Continuous Telemetry Monitoring
[2017-03-04] MEDS ORDERED: HYDRALAZINE HCL INJ/PF 20 MG/1 ML SDV IV PRN (22:55)
[2017-03-05] MEDS ORDERED: INFLUENZA ADLT QUAD (36MOS+) 2017-18 VAC 0.5 ML SYR IM PRN (04:20)
[2017-03-05] MEDS: LANSOPRAZOLE 30 MG TAB.RAP.DR PO SCH (06:18)
[2017-03-05] MEDS: CLONIDINE HCL 0.2 MG TABLET PO SCH (06:18)
[2017-03-05] MEDS: BUPROPION HCL 100 MG TABLET PO SCH (06:18)
[2017-03-05 08:06] LABS: ANION GAP 12 (5-19); BLOOD UREA NITROGEN 12 mg/dL (7-20); CALCIUM 10.1 mg/dL (8.4-10.2); CARBON DIOXIDE 24 mmol/L (22-30); CHLORIDE 105 mmol/L (98-107); GLUCOSE 195 mg/dL (75-110); MAGNESIUM 1.7 mg/dL (1.6-2.3); POTASSIUM 4.6 mmol/L (3.6-5.0); SODIUM 140.8 mmol/L (137-145)
[2017-03-05] MEDS ORDERED: MAGNESIUM OXIDE 400 MG TABLET PO ONE (09:30)
[2017-03-05] MEDS: METOPROLOL TARTRATE 25 MG TABLET PO SCH (09:32)
[2017-03-05] MEDS: CLOPIDOGREL BISULFATE 75 MG TABLET PO SCH (09:32)
[2017-03-05] MEDS: GABAPENTIN 400 MG CAPSULE PO SCH (09:32)
[2017-03-05] MEDS: INSULIN LISPRO 100 UNIT/ML 3 ML VIAL SUBCUT PRN (09:32)
[2017-03-05] MEDS: ASPIRIN 325 MG TABLET, ENT COATED PO SCH (09:32)
[2017-03-05] MEDS ORDERED: ISOSORBIDE MONONITRATE 30 MG TAB.ER.24H PO SCH (10:00)
[2017-03-05] MEDS ORDERED: HYDRALAZINE HCL 50 MG TABLET PO SCH (10:00)
[2017-03-05 12:15] VITALS: BP 126/92
--- NOTE | 2017-03-05 12:41 | PDOC DISCHARGE SUMMARY ---
General - Admit/Disc Date/PCP Admission Date/Primary Care Provider: 03/03/17 16:13 Discharge Date: 03/05/17 - Discharge Diagnosis (2) Hypertension Is this a current diagnosis for this admission?: Yes (3) Diabetes Is this a current diagnosis for this admission?: Yes (4) HLD (hyperlipidemia) Is this a current diagnosis for this admission?: Yes (5) Hyponatremia Is this a current diagnosis for this admission?: Yes (6) Dehydration Is this a current diagnosis for this admission?: Yes (7) Diastolic heart failure Is this a current diagnosis for this admission?: Yes - Additional Information Resuscitation Status: Full Code Discharge Diet: Cardiac, Diabetic Discharge Activity: Activity As Tolerated Prescriptions: Aspirin [Ecotrin 325 mg EC Tablet] 325 mg PO DAILY #30 tabec Clopidogrel Bisulfate [Plavix 75 mg Tablet] 75 mg PO DAILY 30 Days #30 tablet Insulin Glargine,Hum.rec.anlog [Lantus Solostar] 10 unit SQ BID #1 insuln.pen Pen Needle, Diabetic [Insulin Pen Needle] 1 each MC BID #60 dis.needle Home Medications: Bupropion HCl [Wellbutrin Sr] 150 mg PO Q12 03/03/17 Clonidine HCl [Catapres 0.2 mg Tablet] 0.2 mg PO Q8 03/03/17 Docusate Sodium [Colace] 200 mg PO QHS 03/03/17 Ferrous Sulfate 324 mg PO DAILY 03/03/17 Gabapentin [Neurontin] 400 mg PO Q12 03/03/17 Metformin HCl [Glucophage] 1,000 mg PO BIDBS 03/03/17 Metoprolol Tartrate [Lopressor 25 mg Tablet] 25 mg PO Q12 03/03/17 Pravastatin Sodium [Pravachol] 40 mg PO QHS 03/03/17 Trazodone HCl [Desyrel 50 mg Tablet] 50 mg PO QHS 03/03/17 Hydralazine HCl [Apresoline 25 mg Tablet] 25 mg PO Q8 03/04/17 Aspirin [Ecotrin 325 mg EC Tablet] 325 mg PO DAILY #30 tabec 03/05/17 Clopidogrel Bisulfate [Plavix 75 mg Tablet] 75 mg PO DAILY 30 Days #30 tablet Insulin Glargine,Hum.rec.anlog [Lantus Solostar] 10 unit SQ BID #1 insuln.pen 01 /11/18 Pen Needle, Diabetic [Insulin Pen Needle] 1 each BID #60 dis.needle 03/05/17 History of Present Illness History of Present Illness: GENESIS GOMEZ is a 56 year old female with a history of hypertension diabetes and strokes presenting with change in speech since Thursday. Patient states she went to bed and was normal on Thursday. She states when she woke up her speech was different. Patient denied any other symptoms. Patient states she went to the walk-in [place] [facility] where they did not find anything wrong. Did ask her to follow-up at [place] just in case they found something more. Patient she had 2 strokes in the past 1 out of her bed reading and one that affected her left side. Patient states she is recovering from both. Patient states however since found a stroke on the left side she will have intermittent pain and was started on gabapentin. CT scan was done and patient was noted to have an acute infarct. Hospitalist was called to admit patient for stroke workup. Original H&P was dictated by Dr. Sarah Beth Kim.. Refer to H&P for complete details. Hospital Course Hospital Course: Patient presented with an acute [place]. Patient noticed symptoms on Thursday morning however presented to the hospital on Thursday for further evaluation. She was found to have a left vertebrobasilar stroke on CT scan. Follow-up MRI showed a small focal area of restricted diffusion in the left thalamus consistent with acute infarct. There was also old infarct in the left cerebellar hemisphere. MRI of the brain showed probable focal stenosis of the distal right and left vertebral arteries at the junction with the basilar artery. There is limited visualization of the distal left anterior cerebral artery, possibly stenotic. Carotid Doppler showed no hemodynamically significant stenosis. Cardiac echo showed normal EF with mild concentric left ventricular hypertrophy. Patient also has a grade 2 out of 4 or mild to moderate diastolic dysfunction. There is no mitral valve stenosis. There is no aortic valve stenosis. There is trace amount of tricuspid regurgitation. There is trace to mild amount of mitral regurgitation. She was evaluated by PT OT and speech therapy. Patient' s only deficit is her speech. She does have a mild right sided facial droop. Patient was started on aspirin and Plavix however after discussing her case with neurology advised and they recommended that patient be on lifelong therapy with Plavix. Patient has had multiple strokes in the past. Instructed patient to take aspirin 325 1-2 to [facility]. At that time she would discontinue taking aspirin. Also instructed patient to have a referral to histological illustrator in order to have a event monitor to rule out any possible underlying arrhythmia causing her strokes. Also asked that she was referred to a neurologist as this is her third fourth stroke. Patient has hypertension which requires multiple medications for control. Patient was allowed to have permissive hypertension during hospitalization however started to become extremely hypertensive. This most likely resulted from rebound hypertension from her clonidine. Patient restarted on her meds and blood pressures are appropriately controlled. Patient with type 2 diabetes with a hemoglobin A1c of 8.2. Explained to patient that metformin is great however she may require tighter glucose control as she is on her third or fourth stroke. Recommend that patient start taking insulin Lantus 10 units twice daily. Patient was given prescription for which [facility] and [facility]. Next problem hyperlipidemia patient is on high-dose statin. Unfortunately patient does admit to not eating properly. She vows to change her diet. Patient has already met with a dietitian. Patient did have some mild hyponatremia with mild elevation of her BUN and creatinine on presentation most likely due to the use of hydrochlorothiazide. Patient was given gentle hydration at 75 cc an hour at which point the prerenal azotemia and hyponatremia did resolve. Patient is doing great however would like to be seen by speech therapy 1 more time for discharge home. Patient is given instructions on speech exercises to do. Patient also asked to have her [facility] her to a speech therapist if needed. Physical Exam Vital Signs: Temp Pulse Resp BP Pulse Ox 98.3 F 73 16 126/92 H 98 03/05/17 12:00 03/05/17 12:00 03/05/17 12:00 03/05/17 12:00 03/05/17 12:00 Intake & Output 03/04/17 03/05/17 03/06/17 06:59 06:59 06:59 Intake Total 130 Output Total 800 Balance -670 Weight 91.172 kg 98.8 kg General appearance: PRESENT: no acute distress, well-developed, well-nourished Head exam: PRESENT: atraumatic, normocephalic Eye exam: PRESENT: conjunctiva pink, EOMI, PERRLA. ABSENT: scleral icterus Ear exam: PRESENT: normal external ear exam Mouth exam: PRESENT: moist, tongue midline Neck exam: ABSENT: carotid bruit, JVD, lymphadenopathy, thyromegaly Respiratory exam: PRESENT: clear to auscultation linda. ABSENT: rales, rhonchi, wheezes Cardiovascular exam: PRESENT: RRR. ABSENT: diastolic murmur, rubs, systolic murmur Pulses: PRESENT: normal dorsalis pedis pul Vascular exam: PRESENT: normal capillary refill GI/Abdominal exam: PRESENT: normal bowel sounds, soft. ABSENT: distended, guarding, mass, organolmegaly, rebound, tenderness Rectal exam: PRESENT: deferred Extremities exam: PRESENT: full ROM. ABSENT: calf tenderness, clubbing, pedal edema Neurological exam: PRESENT: alert, awake, oriented to person, oriented to place , oriented to time, oriented to situation, CN II-XII grossly intact, other - slurred speech slight rigt sided facial droop. ABSENT: motor sensory deficit Psychiatric exam: PRESENT: appropriate affect, normal mood. ABSENT: homicidal ideation, suicidal ideation Skin exam: PRESENT: dry, intact, warm. ABSENT: cyanosis, rash Results Laboratory Results: 03/05/17 07:27 03/05/17 07:27 Sodium 140.8 Potassium 4.6 Chloride 105 Carbon Dioxide 24 Anion Gap 12 BUN 12 Creatinine 0.96 Est GFR ( Amer) > 60 Est GFR (Non-Af Amer) > 60 Glucose 195 H Calcium 10.1 Magnesium 1.7 Impressions: Head MRI 03/03/17 00:00 IMPRESSION: 1. SMALL FOCAL AREA OF RESTRICTED DIFFUSION IN THE LEFT THALAMUS CONSISTENT WITH ACUTE INFARCT. 2. ATROPHY AND CHRONIC MICRO-VASCULAR ISCHEMIC CHANGES. OLD INFARCT IN THE LEFT CEREBELLAR HEMISPHERE. EVIDENCE OF ACUTE STROKE: NO. Chest X-Ray 03/03/17 14:38 IMPRESSION: NO ACUTE RADIOGRAPHIC FINDING IN THE CHEST. Head CT 03/03/17 14:38 IMPRESSION: CHRONIC CHANGES OF ATROPHY AND MICROVASCULAR ISCHEMIA. DECREASED ATTENUATION IN THE LEFT CEREBELLAR HEMISPHERE CONSISTENT WITH INFARCT, POSSIBLY RECENT. IF CLINICALLY INDICATED, FOLLOW-UP WITH MRI MAY BE CONSIDERED. EVIDENCE OF ACUTE STROKE: YES. LEFT VERTEBROBASILAR Brain MRI with MRA 03/04/17 00:00 IMPRESSION: NO OCCLUSIONS. PROBABLE FOCAL STENOSES OF THE DISTAL RIGHT AND LEFT VERTEBRAL ARTERIES AT THE JUNCTION WITH THE BASILAR ARTERY. LIMITED VISUALIZATION OF THE DISTAL LEFT ANTERIOR CEREBRAL ARTERY, POSSIBLY STENOTIC. ABSENT A 1 SEGMENT OF THE RIGHT ANTERIOR CEREBRAL ARTERY WITH PATENT ANTERIOR COMMUNICATING ARTERY. Carotid Doppler Study 03/04/17 00:00 IMPRESSION: NO HEMODYNAMICALLY SIGNIFICANT STENOSIS. Qualifiers PATEINT BEING DISCHARGED WITH ANY OF THE FOLLOWING DIAGNOSIS?: Stroke VTE patient discharged on overlapping Therapy?: Yes Stroke Pt being discharged on Anti-thrombolytic therapy?: Yes Stroke Pt being discharged on Anti-coagulation therapy?: No Stroke Pt being discharged on Statins?: Yes HF Pt discharged on evidence-based Beta Kanwal:: Yes Plan Time Spent: Greater than 30 Minutes - Patient is being [facility] Patient will need to be on lifelong Plavix due to her recurrent strokes. Patient advised to take aspirin 325 daily until she can [facility] the [facility] and have a [facility] prescription filled. Patient also advised to follow better diet and potentially be started on insulin in order to better control her diabetes as her A1c is 8.2. Patient blood pressures are fairly well- controlled advised her to continue taking her medication. Patient should participate in physical activity on a regular basis.
--- NOTE | 2017-03-05 18:55 | EKG REPORT ---
SEVERITY:- ABNORMAL ECG - SINUS RHYTHM PROBABLE LEFT ATRIAL ABNORMALITY PROBABLE LEFT VENTRICULAR HYPERTROPHY : Confirmed by: Michael Silvestre MD 05-Mar-2017 18:54:35
== END 2017-03-05 12:16 | disposition home or self-care (01) | DRG 65 ==
LOC: ER 14:00 → EH 16:13 → 3W 03-04 21:40
PROVIDERS: ADMIT Emergency Medicine; ATTEND Emergency Medicine
DX: I63.9 Cerebral infarction, unspecified (principal); E87.1 Hypo-osmolality and hyponatremia; I50.32 Chronic diastolic (congestive) heart failure; R47.81 Slurred speech; E78.5 Hyperlipidemia, unspecified; E11.9 Type 2 diabetes mellitus without complications; E86.0 Dehydration; I11.0 Hypertensive heart disease with heart failure; F32.9 Major depressive disorder, single episode, unspecified; Z87.891 Personal history of nicotine dependence; Z79.84 Long term (current) use of oral hypoglycemic drugs; Z79.899 Other long term (current) drug therapy; Z86.73 Personal history of transient ischemic attack (TIA), and cerebral infarction without residual deficits
CPT/HCPCS: 36415; 70450; 70544; 70551; 71045; 80048; 80053; 80061; 82550; 82553; 82962; 83036; 83735; 84484; 85025; 85610; 85652; 85730; 90686; 93005; 93010; 93306; 93880; 99285; J0360; J1815; J3490

== ENCOUNTER → 2017-12-11 | Outpatient (CLI) | payer OTHER ==
[2017-12-11 15:08] LABS: ABSOLUTE LYMPHOCYTES (AUTO) 2.2 10^3/uL (0.5-4.7); ABSOLUTE MONOCYTES (AUTO) 0.4 10^3/uL (0.1-1.4); ABSOLUTE NEUT (AUTO) 2.8 10^3/uL (1.7-8.2); BASOPHILS % (AUTO) 0.5 % (0-2); EOSINOPHILS % (AUTO) 0.7 % (0-6); HEMATOCRIT 36.8 % (36.0-47.0); HEMOGLOBIN 11.8 g/dL (12.0-15.5); LYMPHOCYTES % (AUTO) 39.9 % (13-45); MEAN CORPUSCULAR HEMOGLOBIN 27.9 pg (27.0-33.4); MEAN CORPUSCULAR HGB CONC 32.1 g/dL (32.0-36.0); MEAN CORPUSCULAR VOLUME 87 fl (80-97); MONOCYTES % (AUTO) 7.9 % (3-13); PLATELET COUNT 188 10^3/uL (150-450); RED BLOOD COUNT 4.23 10^6/uL (3.72-5.28); RED CELL DISTRIBUTION WIDTH 13.5 % (11.5-14.0); TOTAL CELLS COUNTED % (AUTO) 100 %; WHITE BLOOD COUNT 5.5 10^3/uL (4.0-10.5)
--- NOTE | 2017-12-11 15:10 | RADIOLOGY REPORT (SQ) ---
EXAM DESCRIPTION: CHEST PA/LATERAL COMPLETED DATE/TIME: 12/11/2017 2:53 pm REASON FOR STUDY: PRE-OP COMPARISON: None. EXAM PARAMETERS: NUMBER OF VIEWS: two views TECHNIQUE: Digital Frontal and Lateral radiographic views of the chest acquired. RADIATION DOSE: NA LIMITATIONS: none FINDINGS: LUNGS AND PLEURA: No opacities, masses or pneumothorax. No pleural effusion. MEDIASTINUM AND HILAR STRUCTURES: No masses or contour abnormalities. HEART AND VASCULAR STRUCTURES: Heart upper limits of normal size. No evidence for failure. BONES: No acute findings. HARDWARE: None in the chest. OTHER: No other significant finding. IMPRESSION: NO SIGNIFICANT RADIOGRAPHIC FINDING IN THE CHEST. TECHNICAL DOCUMENTATION: JOB ID: [id number] [employer]- All Rights Reserved Reading location - IP/workstation name: [email or web address]
[2017-12-11 15:23] LABS: APPEARANCE,URINE CLOUDY; BILIRUBIN,URINE NEGATIVE (NEGATIVE); GLUCOSE, URINE NEGATIVE (NEGATIVE); KETONES,URINE NEGATIVE (NEGATIVE); LEUKOCYTE ESTERASE,URINE LARGE (NEGATIVE); NITRITE,URINE NEGATIVE (NEGATIVE); PROTEIN,URINE 30 mg/dL (NEGATIVE); URINE SPECIFIC GRAVITY 1.027; UROBILINOGEN,URINE NEGATIVE mg/dL (<2.0)
[2017-12-11 15:24] LABS: COLOR,URINE YELLOW
[2017-12-11 15:31] LABS: ANION GAP 8 (5-19); BLOOD UREA NITROGEN 25 mg/dL (7-20); CALCIUM 9.6 mg/dL (8.4-10.2); CARBON DIOXIDE 29 mmol/L (22-30); CHLORIDE 103 mmol/L (98-107); GLUCOSE 107 mg/dL (75-110); POTASSIUM 4.8 mmol/L (3.6-5.0); SODIUM 139.5 mmol/L (137-145)
--- NOTE | 2017-12-11 19:34 | EKG REPORT ---
SEVERITY:- ABNORMAL ECG - SINUS RHYTHM PROBABLE LEFT ATRIAL ABNORMALITY PROBABLE LEFT VENTRICULAR HYPERTROPHY NO CHANGE FROM 03/05/17 EKG : Confirmed by: Michael Silvestre MD 11-Dec-2017 19:33:20
== END ==
LOC: OD 14:08
PROVIDERS: ATTEND Orthopaedic Surgery
DX: Z01.818 Encounter for other preprocedural examination (principal); E11.9 Type 2 diabetes mellitus without complications
CPT/HCPCS: 36415; 71046; 80048; 81001; 83036; 85025; 93005; 93010

== ENCOUNTER 2019-01-02 17:24 | Emergency (ER) | payer OTHER ==
[2019-01-02] MEDS ORDERED: BUTALB/ACETAMINOPHEN/CAFFEINE 1 TAB EACH PO ONE (18:19)
--- NOTE | 2019-01-02 18:19 | ER Document Report ---
ED Medical Screen (RME) - General Chief Complaint: Headache Stated Complaint: HEADACHE Time Seen by Provider: 01/02/19 18:14 Primary Care Provider: TIFFANY MURPHY MD [Primary Care Provider] - Follow up as needed Information source: Patient Notes: Patient presents complaining of occipital headache that started around 1:00 today. Patient denies any head injury nausea or vomiting. Patient states takes Plavix after having a previous CVA. I have greeted and performed a rapid initial assessment of this patient. A comprehensive ED assessment and evaluation of the patient, analysis of test re sults and completion of the medical decision making process will be conducted by additional ED providers. TRAVEL OUTSIDE OF THE [place] IN LAST 30 DAYS: No - Related Data Allergies/Adverse Reactions: No Known Allergies Allergy (Unverified 03/03/17 19:03) Home Medications: clonidine. metoprolol. isosorbide. plavix Past Medical History - Social History Chew tobacco use (# tins/day): No Frequency of alcohol use: None Drug Abuse: None - Past Medical History Cardiac Medical History: Reports: Hx Hypertension Endocrine Medical History: Reports: Hx Diabetes Mellitus Type 2 Renal/ Medical History: Denies: Hx Peritoneal Dialysis Psychiatric Medical History: Reports: Hx Depression Physical Exam - Vital signs Vitals: Temp Pulse Resp BP Pulse Ox 98.0 F 63 16 146/85 H 97 01/02/19 17:43 01/02/19 17:43 01/02/19 17:43 01/02/19 17:43 01/02/19 17:43 - Neurological Neuro grossly intact: Yes Cognition: Normal Orientation: AAOx4 [place] Coma Scale Eye Opening: Spontaneous [place] Coma Scale Verbal: Oriented [place] Coma Scale Motor: Obeys Commands Reji Coma Scale Total: 15 Course - Vital Signs Vital signs: Temp Pulse Resp BP Pulse Ox 98.0 F 63 16 146/85 H 97 01/02/19 17:43 01/02/19 17:43 01/02/19 17:43 01/02/19 17:43 01/02/19 17:43 Doctor's Discharge - Discharge Referrals: TIFFANY MURPHY MD [Primary Care Provider] - Follow up as needed
--- NOTE | 2019-01-02 19:44 | RADIOLOGY REPORT (SQ) ---
EXAM DESCRIPTION: CT HEAD WITHOUT COMPLETED DATE/TIME: 01/02/2019 7:04 pm REASON FOR STUDY: [place] COMPARISON: CT of head without contrast. 03/03/2017. MRI brain 03/03/2017. TECHNIQUE: Axial images acquired through the brain without intravenous contrast. Images reviewed wi th bone, brain and subdural windows. Images stored on PACS. All CT scanners at this facility use dose modulation, iterative reconstruction, and/or weight based d osing when appropriate to reduce radiation dose to as low as reasonably achievable (ALARA). [facility]: Dose Right [facility]: CareDose [facility]: Dose Right [facility]: Teradose 4D [facility]: Smart Nveloped RADIATION DOSE: CT Rad equipment meets quality standard of care and radiation dose reduction techniq ues were employed. CTDIvol: 53.2 mGy. DLP: 991 mGy-cm. mGy. LIMITATIONS: None. FINDINGS: VENTRICLES: Normal size and contour. CEREBRUM: No masses. No hemorrhage. No midline shift. No evidence for acute infarction. Confluent areas of decreased attenuation noted in the subcortical and periventricular white matter consistent w ith chronic white matter change. No intracerebral hemorrhage. 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 CEREBELLUM: No masses. No hemorrhage. There is evidence of an area decreased attenuation left cerebe llar hemisphere similar to previous findings on CT 03/03/2017 and MRI 03/03/2017 consistent with old infa rct. EXTRAAXIAL SPACES: No fluid collections. No masses. ORBITS AND GLOBE: No intra- or extraconal masses. Normal contour of globe without masses. CALVARIUM: No fracture. PARANASAL SINUSES: No fluid or mucosal thickening. SOFT TISSUES: No mass or hematoma. OTHER: No other significant finding. IMPRESSION: NO SIGNIFICANT INTERVAL CHANGE. EVIDENCE OF ACUTE STROKE: NO. COMMENT: Quality ID # [id number]: Final reports with documentation of one or more dose reduction techniques (e.g., Automated exposure control, adjustment of the mA and/or kV according to patient size, use of iterative reconstruction technique) TECHNICAL DOCUMENTATION: JOB ID: [id number] [employer]- All Rights Reserved Reading location - IP/workstation name: [email or web address]
--- NOTE | 2019-01-02 22:32 | ER Document Report ---
ED Headache - General Chief Complaint: Headache Stated Complaint: HEADACHE Time Seen by Provider: 01/02/19 18:14 Notes: Patient is a 58-year-old female that comes emergency department for chief complaint of a headache that began today at about 1 PM. She states that the pain was throbbing and at the back of her head. She denies visual changes, focal numbness or weakness, nausea or vomiting. She states she does not usually get headaches. She denies head injury, fever/chills. She states she was given something for the headache in triage and now her headache is gone. She currently has no complaints. 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 She is on Plavix for this. Aunt is at bedside. TRAVEL OUTSIDE OF THE [place] IN LAST 30 DAYS: No - Related Data Allergies/Adverse Reactions: No Known Allergies Allergy (Unverified 03/03/17 19:03) Home Medications: clonidine. metoprolol. isosorbide. plavix Past Medical History - General Information source: Patient - Social History Smoking Status: Never Smoker Chew tobacco use (# tins/day): No Frequency of alcohol use: None Drug Abuse: None Lives with: Family Family History: Reviewed & Not Pertinent Patient has suicidal ideation: No Patient has homicidal ideation: No - Past Medical History Cardiac Medical History: Reports: Hx Hypertension Endocrine Medical History: Reports: Hx Diabetes Mellitus Type 2 Renal/ Medical History: Denies: Hx Peritoneal Dialysis Psychiatric Medical History: Reports: Hx Depression - Immunizations Immunizations up to date: Yes Hx Diphtheria, Pertussis, Tetanus Vaccination: Yes Review of Systems - Review of Systems Constitutional: No symptoms reported EENT: No symptoms reported Cardiovascular: No symptoms reported Respiratory: No symptoms reported Gastrointestinal: No symptoms reported Genitourinary: No symptoms reported Female Genitourinary: No symptoms reported Musculoskeletal: No symptoms reported Skin: No symptoms reported Hematologic/Lymphatic: No symptoms reported Neurological/Psychological: See HPI Physical Exam - Vital signs Vitals: Temp Pulse Resp BP Pulse Ox 98.0 F 63 16 146/85 H 97 01/02/19 17:43 01/02/19 17:43 01/02/19 17:43 01/02/19 17:43 01/02/19 17:43 - Notes Notes: GENERAL: Sleeping but easily aroused and becomes very alert HEAD: Normocephalic, atraumatic. EYES: Pupils equal, round, and reactive to light. Extraocular movements intact. ENT: Oral mucosa moist, tongue midline. Oropharynx unremarkable. Airway patent. Nares patent, no nasal septal hematoma, TM's intact. NECK: Full range of motion. Supple. Trachea midline. LUNGS: Clear to auscultation bilaterally, no wheezes, rales, or rhonchi. No respiratory distress. HEART: Regular rate and rhythm. No murmur ABDOMEN: Soft, non-tender. Non-distended. EXTREMITIES: Moves all 4 extremities spontaneously. No edema, normal radial and dorsalis pedis pulses bilaterally. No cyanosis. BACK: no cervical, thoracic, lumbar midline tenderness. No saddle anesthesia, normal distal neurovascular exam. Moves all extremities in full range of motion. NEUROLOGICAL: Alert and oriented x3. Occasionally mildly slurred speech. Cranial nerves II through XII grossly intact. PSYCH: Normal affect, normal mood. SKIN: Warm, dry, normal turgor. No rashes or lesions noted. Course - Re-evaluation Re-evalutation: Patient was asleep when I initially evaluated her, she was easily aroused and became alert. She has a normal neurological exam except for occasionally slurred speech but apparently this is her baseline per family and patient. CAT scan of the head reviewed and negative. Patient has no current headache and no current complaints. No nuchal rigidity, no concerning vital signs noted, patient has no current complaints and is requesting relief. She states the medication we gave her helped her a lot and she is requesting to take this at home. She was provided with this. Discussed follow-up, expectations, return precautions at length. Patient and family state appreciation and agreement. Stable at time of discharge. - Vital Signs Vital signs: Temp Pulse Resp BP Pulse Ox 97.8 F 62 18 141/76 H 98 01/02/19 22:59 01/02/19 22:59 01/02/19 22:59 01/02/19 22:59 01/02/19 22:59 Discharge - Discharge Clinical Impression: Headache Qualifiers: Headache type: unspecified Headache chronicity pattern: acute headache Intractability: not intractable Qualified Code(s): R51 - Headache Condition: Stable Disposition: HOME, SELF-CARE Additional Instructions: Your evaluation is reassuring. Your improvement with treatment is reassuring. The CAT scan of your head does not show any concerning findings at this time. You can take the prescribed medication for suspected tension headaches if needed, follow-up with your primary care provider for additional evaluation and management of headaches. Return if you worsen including return or severe headache, vomiting, numbness, weakness, or any other concerning or worsening symptoms. Prescriptions: Butalb/Acetaminophen/Caffeine [Fioricet (50-325-40 mg) Tablet] 1 tab PO Q4HP PRN #20 tab PRN Reason:
[2019-01-02 23:00] VITALS: BP 141/76
== END 2019-01-02 23:01 | disposition home or self-care (01) ==
LOC: ER 17:24
DX: R51 Headache (principal); I10 Essential (primary) hypertension; E11.9 Type 2 diabetes mellitus without complications; I69.328 Other speech and language deficits following cerebral infarction; I69.311 Memory deficit following cerebral infarction; Z79.02 Long term (current) use of antithrombotics/antiplatelets; Z79.899 Other long term (current) drug therapy
CPT/HCPCS: 99284; 70450; J3490